=== PATIENT | female | born 1990 | race Two or more races ===

== ENCOUNTER 2017-01-26 22:08 | Emergency (ER) | payer OTHER ==
--- NOTE | ~2017-01-26 | CR126 ---
[facility] A Service of [facility] & [facility] RADIOLOGY TEXT RESULTS PATIENT: RADHA MCCOY LOCATION: [facility] : [birth year] UNIT #: [id number] AGE: [address]: Ramon Gonzales SEX: F ORDER DR: [id number] [facility] [address] [place], [place] [address] [id number] MR#: [id number] Acc #: [id number] NAME: RADHA MCCOY : 1990 SEX: F STUDY DATE/TIME: 01/26/2017 23:25 UNIT: [facility] ROOM: STUDY DESCRIPTION: CR Foot Complete Min 3 View Lt Attending Physician: Ramon Gonzales P.A.-C. Ordering Physician: Ramon Gonzales P.A.-C. Primary Care Physician: Primary Care Physician No MEDICAL IMAGING REPORT This report is preliminary unless electronic signature is present REVISED REPORT EXAM Left foot INDICATION Left foot pain today after metal object dropped on foot. FINDINGS Three views of the left foot were obtained. No fracture is visible. The bones are normal. IMPRESSION Normal left foot. accession number revised Dictated by... Munri Vuogn M.D. THIS IS AN ELECTRONICALLY VERIFIED REPORT Munir Vuong M.D. at 01/30/2017 1:22 PM ROSA/vandana TD: 01/27/2017 07:12 JOB #: [id number] MEDICAL IMAGING REPORT Page 1 of 1 COPY
--- NOTE | ~2017-01-26 | CR126 ---
[facility] A Service of [facility] & [facility] RADIOLOGY TEXT RESULTS PATIENT: RADHA MCCOY LOCATION: [facility] : [birth year] UNIT #: [id number] AGE: [address]: Ramon Gonzales SEX: F ORDER DR: [id number] [facility] [address] [place], [place] [address] [id number] MR#: [id number] Acc #: [id number] NAME: RADHA MCCOY : 1990 SEX: F STUDY DATE/TIME: 01/26/2017 23:25 UNIT: [facility] ROOM: STUDY DESCRIPTION: CR Foot Complete Min 3 View Lt Attending Physician: Ramon Gonzales P.A.-C. Ordering Physician: Ramon Gonzales P.A.-C. Primary Care Physician: Primary Care Physician No MEDICAL IMAGING REPORT This report is preliminary unless electronic signature is present EXAM Left foot INDICATION Left foot pain today after metal object dropped on foot. FINDINGS Three views of the left foot were obtained. No fracture is visible. The bones are normal. IMPRESSION Normal left foot. Dictated by... Munir Vuong M.D. THIS IS AN ELECTRONICALLY VERIFIED REPORT Munir Vuong M.D. at 01/27/2017 1:31 PM ROSA/vandana TD: 01/27/2017 07:12 JOB #: [id number] MEDICAL IMAGING REPORT Page 1 of 1 COPY
== END 2017-01-26 23:59 | disposition home or self-care (01) ==
LOC: CED 22:08 → CFTX 22:08
DX: S90.32XA Contusion of left foot, initial encounter (principal); J45.909 Unspecified asthma, uncomplicated; Z88.8 Allergy status to other drugs, medicaments and biological substances; W20.8XXA Other cause of strike by thrown, projected or falling object, initial encounter; Y93.89 Activity, other specified; Y92.69 Other specified industrial and construction area as the place of occurrence of the external cause; Y99.0 Civilian activity done for income or pay
CPT/HCPCS: 73630; 84703; 99283; 99284